=== PATIENT | female | born 1960 | race Hispanic/Latino ===

== ENCOUNTER 2023-09-18 01:00 | Inpatient (IN) | payer SELFPAY ==
[~2023-09-18] VITALS: Ht 152.4 cm; Wt 84.5 kg
[2023-09-18] VITALS (17 sets, daily range): BP systolic 76–116; BP diastolic 43–63; PULSE 76–87; RESP 8–25; O2SAT 94
[~2023-09-18 01:00] MED LIST: ASPI-1197 PO; AZIT500T4 PO; DULO60CA45 PO; GABA600T10 PO; GLYB5TAB8 PO; LISI10TA24 PO; TRAM50TA4 PO
[2023-09-18 01:25] LABS: BASOPHILS # (AUTO) 0.08 K/uL (0.00-0.20); BASOPHILS % (AUTO) 0.8 % (0.0-5.0); EOSINOPHILS # (AUTO) 0.16 K/uL (0.00-0.70); EOSINOPHILS % (AUTO) 1.7 % (0.0-8.0); HEMATOCRIT 30.7 % (36-48); IMMATURE GRANULOCYTE ABSOLUTE 0.06 K/uL (0-1); LYMPHOCYTES % (AUTO) 10.4 % (21.0-51.0); MEAN CORPUSCULAR HEMOGLOBIN 30.9 pg (27.0-33.0); MEAN CORPUSCULAR HGB CONC 35.2 g/dL (32.0-36.0); MONOCYTES # (AUTO) 0.7 K/uL (0.1-1.0); MONOCYTES % (AUTO) 7.2 % (3.0-13.0); NEUTROPHILS # (AUTO) 7.7 K/uL (1.8-7.7); NEUTROPHILS % (AUTO) 79.3 % (40.0-77.0); PLATELET COUNT (AUTO) 239 K/uL (130-400); RED BLOOD CELL COUNT(AUTO) 3.49 MIL/uL (4.00-5.50); RED CELL DISTRIBUTION WIDTH 12.7 % (11.0-15.5); WHITE BLOOD COUNT (AUTO) 9.7 K/uL (4.8-10.8)
[2023-09-18] MEDS: 0.9%NACL 1000ML 2,340 ML IV ONE (01:28)
[2023-09-18 01:47] LABS: ALBUMIN 3.6 g/dL (3.5-5.0); BILIRUBIN,TOTAL 0.4 mg/dL (0.2-1.0); CREATININE 4.5 mg/dL (0.5-1.0); POTASSIUM 4.6 mmol/L (3.5-5.1); TOTAL PROTEIN, SERUM 7.1 g/dL (6.0-8.3)
[2023-09-18 02:06] LABS: INR 1.02 (0.85-1.15)
[2023-09-18 02:08] LABS: PARTIAL THROMBOPLASTIN TIME 25.8 SEC (26.3-35.5)
[2023-09-18] MEDS: ASPIRIN 325MG TAB PO ONE (02:15)
[2023-09-18] MEDS: ATORVASTATIN 40 MG TABLET PO ONE (03:34)
[2023-09-18] MEDS: HEPARIN 25,000 UNITS/250ML D5W 250 ML IV SCH (03:34)
[2023-09-18] MEDS: HEPARIN 5,000 UNIT VIAL ONE (03:36)
[2023-09-18] MEDS ORDERED: ONDANSETRON 4MG INJ IV PRN (05:30)
[2023-09-18] MEDS ORDERED: DEXTROSE 50%-WATER 50 ML DISP.SYRIN IV PRN (05:30)
[2023-09-18] MEDS ORDERED: NITROGLYCERIN 0.4 MG SL TAB SL PRN (05:30)
[2023-09-18] MEDS ORDERED: GLUCAGON 1MG KIT 1 MG ML IM PRN (05:30)
[2023-09-18] MEDS: 0.9%NACL 1000ML 1,000 ML IV SCH (06:14)
[2023-09-18 06:44] LABS: CHLORIDE,URINE RANDOM 28 mmol/L (110-250); POTASSIUM,URINE RANDOM 46 mmol/L (25-125); SODIUM,URINE RANDOM 27 mmol/l (40-220)
[2023-09-18 07:08] LABS: BASOPHILS # (AUTO) 0.05 K/uL (0.00-0.20); BASOPHILS % (AUTO) 0.6 % (0.0-5.0); EOSINOPHILS # (AUTO) 0.06 K/uL (0.00-0.70); EOSINOPHILS % (AUTO) 0.7 % (0.0-8.0); HEMATOCRIT 28.2 % (36-48); IMMATURE GRANULOCYTE ABSOLUTE 0.08 K/uL (0-1); LYMPHOCYTES # (AUTO) 1.1 K/uL (1.0-4.8); LYMPHOCYTES % (AUTO) 13.3 % (21.0-51.0); MEAN CORPUSCULAR HGB CONC 34.8 g/dL (32.0-36.0); MEAN CORPUSCULAR VOLUME 89.2 fL (79-99); MONOCYTES # (AUTO) 0.4 K/uL (0.1-1.0); NEUTROPHILS # (AUTO) 6.6 K/uL (1.8-7.7); NEUTROPHILS % (AUTO) 79.4 % (40.0-77.0); PLATELET COUNT (AUTO) 209 K/uL (130-400); RED BLOOD CELL COUNT(AUTO) 3.16 MIL/uL (4.00-5.50); RED CELL DISTRIBUTION WIDTH 12.4 % (11.0-15.5); WHITE BLOOD COUNT (AUTO) 8.3 K/uL (4.8-10.8)
[2023-09-18 07:29] LABS: BILIRUBIN,TOTAL 0.3 mg/dL (0.2-1.0); CREATININE 4.1 mg/dL (0.5-1.0); MAGNESIUM 2.3 mg/dL (1.80-2.40); THYROID STIMULATING HORMONE 0.53 uIU/mL (0.36-3.74); TOTAL PROTEIN, SERUM 6.5 g/dL (6.0-8.3)
[2023-09-18 08:12] LABS: APPEARANCE,URINE CLEAR (CLEAR); BILIRUBIN,URINE NEGATIVE (NEGATIVE); COLOR,URINE YELLOW (YELLOW); GLUCOSE, URINE (UA) NEGATIVE (NEGATIVE); KETONES,URINE NEGATIVE (NEGATIVE); LEUKOCYTE ESTERASE ,URINE 250 Leu/uL (NEGATIVE); NITRATE,URINE NEGATIVE (NEGATIVE); OCCULT BLOOD,URINE NEGATIVE (NEGATIVE); PROTEIN,URINE 20 mg/dL (NEGATIVE); UROBILINOGEN,URINE 0.2 mg/dL (0.2-1.0)
[2023-09-18 08:14] LABS: ADD UA MICROSCOPIC YES
[2023-09-18 08:17] LABS: BACTERIA,URINE FEW /HPF (None Seen); MUCUS,URINE RARE LPF (None Seen); SQUAMOUS EPITHELIAL CELL,UR RARE /HPF (0-2)
[2023-09-18 08:18] LABS: HEMOGLOBIN A1C 7.8 % (4.0-6.0)
[2023-09-18 08:46] LABS: ERYTHROCYTE SEDIMENTATION RATE 40 MM/HR (0-30)
[2023-09-18] MEDS: ASPIRIN 81 MG EC TAB PO SCH (08:47)
[2023-09-18] MEDS: INSULIN HUMULIN R 100 UNIT/ML 3ML SQ SCH (08:49)
[2023-09-18] MEDS ORDERED: FOLI0.8T22 PO (09:03)
[2023-09-18] MEDS ORDERED: DULO60CA45 PO (09:03)
[2023-09-18] MEDS ORDERED: IBUP-2077 PO (09:03)
[2023-09-18] MEDS ORDERED: LISI20TA24 PO (09:03)
[2023-09-18] MEDS ORDERED: CLIN-141 PO (09:03)
[2023-09-18] MEDS ORDERED: ACET-2123 PO (09:03)
[2023-09-18] MEDS ORDERED: 0.9%NACL 1000ML 1,000 ML IV STA (12:59)
[2023-09-18] MEDS: 0.9%NACL 1000ML 1,000 ML IV STA (13:33)
[2023-09-18] MEDS: ZOSYN 3.375GM +NS 50ML IV ONE (16:34)
[2023-09-18] MEDS: ATORVASTATIN 40 MG TABLET PO SCH (20:31)
[2023-09-18] MEDS: acetaMINOPHEN 325 MG TAB PO PRN (22:24)
[2023-09-19] VITALS (52 sets, daily range): BP systolic 91–134; BP diastolic 50–76; PULSE 71–96; RESP 9–39; O2SAT 95–100
[2023-09-19 03:57] LABS: BASOPHILS # (AUTO) 0.06 K/uL (0.00-0.20); BASOPHILS % (AUTO) 0.8 % (0.0-5.0); EOSINOPHILS # (AUTO) 0.38 K/uL (0.00-0.70); EOSINOPHILS % (AUTO) 4.9 % (0.0-8.0); HEMATOCRIT 27.9 % (36-48); IMMATURE GRANULOCYTE ABSOLUTE 0.05 K/uL (0-1); LYMPHOCYTES # (AUTO) 1.4 K/uL (1.0-4.8); LYMPHOCYTES % (AUTO) 17.9 % (21.0-51.0); MEAN CORPUSCULAR HEMOGLOBIN 31.1 pg (27.0-33.0); MEAN CORPUSCULAR HGB CONC 34.1 g/dL (32.0-36.0); MEAN CORPUSCULAR VOLUME 91.5 fL (79-99); MONOCYTES # (AUTO) 0.7 K/uL (0.1-1.0); MONOCYTES % (AUTO) 9.2 % (3.0-13.0); NEUTROPHILS # (AUTO) 5.2 K/uL (1.8-7.7); NEUTROPHILS % (AUTO) 66.6 % (40.0-77.0); PLATELET COUNT (AUTO) 193 K/uL (130-400); RED BLOOD CELL COUNT(AUTO) 3.05 MIL/uL (4.00-5.50); RED CELL DISTRIBUTION WIDTH 12.5 % (11.0-15.5); WHITE BLOOD COUNT (AUTO) 7.8 K/uL (4.8-10.8)
[2023-09-19 04:18] LABS: CREATININE 2.6 mg/dL (0.5-1.0); PHOSPHORUS 6.5 mg/dL (2.5-4.9); POTASSIUM 3.6 mmol/L (3.5-5.1)
[2023-09-19] MEDS: FAMOTIDINE 20MG TAB PO SCH (05:31)
[2023-09-19 06:04] LABS: % IRON SATURATION 44.6 % (22-44)
[2023-09-19] MEDS: CEFTRIAXONE 2GM VIAL IVPB SCH (08:28)
[2023-09-19] MEDS: ISOSORBIDE MONO 30MG SR TAB PO SCH (11:12)
[2023-09-19] MEDS: 0.9%NACL 1000ML 1,000 ML IV ONE (13:17)
[2023-09-19] MEDS: DULOXETINE HCL 30 MG CAP PO SCH (20:04)
[2023-09-20] VITALS (9 sets, daily range): BP systolic 114–139; BP diastolic 68–79; PULSE 81–99; RESP 18–20; O2SAT 95–100
[2023-09-20] MEDS: acetaMINOPHEN 325 MG TAB PO PRN (01:45)
[2023-09-20 03:29] LABS: HEMATOCRIT 28.3 % (36-48); MEAN CORPUSCULAR HEMOGLOBIN 30.8 pg (27.0-33.0); MEAN CORPUSCULAR HGB CONC 33.9 g/dL (32.0-36.0); MEAN CORPUSCULAR VOLUME 90.7 fL (79-99); RED BLOOD CELL COUNT(AUTO) 3.12 MIL/uL (4.00-5.50); RED CELL DISTRIBUTION WIDTH 12.9 % (11.0-15.5); WHITE BLOOD COUNT (AUTO) 9.3 K/uL (4.8-10.8)
[2023-09-20 03:59] LABS: ALBUMIN 2.7 g/dL (3.5-5.0); BILIRUBIN,TOTAL 0.2 mg/dL (0.2-1.0); CREATININE 1.5 mg/dL (0.5-1.0); MAGNESIUM 2.1 mg/dL (1.80-2.40); PHOSPHORUS 4.6 mg/dL (2.5-4.9); POTASSIUM 3.8 mmol/L (3.5-5.1); THYROID STIMULATING HORMONE 1.24 uIU/mL (0.36-3.74); TOTAL PROTEIN, SERUM 6.3 g/dL (6.0-8.3); URIC ACID 8.7 mg/dL (2.6-7.2)
[2023-09-20] MEDS: Vitamin B Complex/Vit C/Folic Acid PO ONE (12:14)
[2023-09-21] VITALS (7 sets, daily range): BP systolic 121–137; BP diastolic 68–83; PULSE 95–109; RESP 14–22; O2SAT 97–100
[2023-09-21] MEDS: HEPARIN 5,000 UNIT VIAL IV PRN ×2 (02:23→16:19)
[2023-09-21 04:23] LABS: HEMATOCRIT 29.5 % (36-48); MEAN CORPUSCULAR HGB CONC 33.9 g/dL (32.0-36.0); MEAN CORPUSCULAR VOLUME 91.3 fL (79-99); RED BLOOD CELL COUNT(AUTO) 3.23 MIL/uL (4.00-5.50); WHITE BLOOD COUNT (AUTO) 8.9 K/uL (4.8-10.8)
[2023-09-21 04:44] LABS: ALBUMIN 2.9 g/dL (3.5-5.0); BILIRUBIN,TOTAL 0.4 mg/dL (0.2-1.0); CREATININE 1.2 mg/dL (0.5-1.0); MAGNESIUM 1.8 mg/dL (1.80-2.40); PHOSPHORUS 3.4 mg/dL (2.5-4.9); POTASSIUM 3.8 mmol/L (3.5-5.1); TOTAL PROTEIN, SERUM 6.5 g/dL (6.0-8.3)
[2023-09-21] MEDS: Vitamin B Complex/Vit C/Folic Acid PO SCH (10:40)
[2023-09-21] MEDS ORDERED: DULO30CA2 PO (11:24)
[2023-09-21] MEDS ORDERED: Isosorbide Mono 30MG Sr Tab PO (11:24)
[2023-09-21] MEDS ORDERED: ATOR40TA69 PO (11:24)
[2023-09-21] MEDS ORDERED: FAMO20TA8 PO (11:24)
[2023-09-21] MEDS: REGADENOSON 0.4 MG/5 ML PF SYG IVP SCH (13:23)
[2023-09-21] MEDS: MAGNESIUM 2GM PREMIX 50ML 50 ML IV PRN (13:53)
[2023-09-21] MEDS: ENOXAPARIN SODIUM 40 MG/0.4 ML SYRINGE SQ SCH (22:20)
[2023-09-22] VITALS (10 sets, daily range): BP systolic 118–138; BP diastolic 70–86; PULSE 89–109; RESP 14–20; TEMP 99; O2SAT 96–98
[2023-09-22 04:07] LABS: BASOPHILS # (AUTO) 0.05 K/uL (0.00-0.20); BASOPHILS % (AUTO) 0.6 % (0.0-5.0); EOSINOPHILS # (AUTO) 0.22 K/uL (0.00-0.70); EOSINOPHILS % (AUTO) 2.8 % (0.0-8.0); HEMATOCRIT 26.9 % (36-48); LYMPHOCYTES # (AUTO) 1.4 K/uL (1.0-4.8); LYMPHOCYTES % (AUTO) 16.9 % (21.0-51.0); MEAN CORPUSCULAR HEMOGLOBIN 31.2 pg (27.0-33.0); MEAN CORPUSCULAR HGB CONC 34.6 g/dL (32.0-36.0); MEAN CORPUSCULAR VOLUME 90.3 fL (79-99); MONOCYTES # (AUTO) 0.6 K/uL (0.1-1.0); MONOCYTES % (AUTO) 7.9 % (3.0-13.0); NEUTROPHILS # (AUTO) 5.6 K/uL (1.8-7.7); NEUTROPHILS % (AUTO) 70.5 % (40.0-77.0); PLATELET COUNT (AUTO) 250 K/uL (130-400); RED BLOOD CELL COUNT(AUTO) 2.98 MIL/uL (4.00-5.50); RED CELL DISTRIBUTION WIDTH 13.2 % (11.0-15.5)
[2023-09-22 04:21] LABS: ALBUMIN 2.8 g/dL (3.5-5.0); BILIRUBIN,TOTAL 0.4 mg/dL (0.2-1.0); CREATININE 1.2 mg/dL (0.5-1.0); MAGNESIUM 2.2 mg/dL (1.80-2.40); POTASSIUM 3.7 mmol/L (3.5-5.1); TOTAL PROTEIN, SERUM 6.5 g/dL (6.0-8.3)
[2023-09-22] MEDS ORDERED: LEVO750T39 PO (11:06)
[2023-09-22] MEDS ORDERED: ENOXAPARIN SODIUM 40 MG/0.4 ML SYRINGE SQ SCH (21:00)
== END 2023-09-22 14:00 | disposition home or self-care (01) | DRG 871 ==
LOC: EDH 01:00 → EDHIP 01:01 → 2BH 13:14 → 2DH 09-19 20:30
PROVIDERS: ADMIT Internal Medicine; ATTEND Internal Medicine
PROC: 4A02XM4 Measurement of Cardiac Total Activity, External Approach (ICD-10-PCS; principal; 2023-09-21)
PROC: 3E073KZ Introduction of Other Diagnostic Substance into Coronary Artery, Percutaneous Approach (ICD-10-PCS; 2023-09-21)
DX: A41.9 Sepsis, unspecified organism (principal); I21.4 Non-ST elevation (NSTEMI) myocardial infarction; N17.0 Acute kidney failure with tubular necrosis; E87.1 Hypo-osmolality and hyponatremia; N30.00 Acute cystitis without hematuria; I25.10 Atherosclerotic heart disease of native coronary artery without angina pectoris; I48.91 Unspecified atrial fibrillation; E11.42 Type 2 diabetes mellitus with diabetic polyneuropathy; E11.65 Type 2 diabetes mellitus with hyperglycemia; N18.9 Chronic kidney disease, unspecified; I12.9 Hypertensive chronic kidney disease with stage 1 through stage 4 chronic kidney disease, or unspecified chronic kidney disease; K04.7 Periapical abscess without sinus; D64.9 Anemia, unspecified; I95.9 Hypotension, unspecified; F32.A Depression, unspecified; E11.22 Type 2 diabetes mellitus with diabetic chronic kidney disease; E66.9 Obesity, unspecified; E78.5 Hyperlipidemia, unspecified; I08.0 Rheumatic disorders of both mitral and aortic valves; I45.4 Nonspecific intraventricular block; Z68.33 Body mass index [BMI] 33.0-33.9, adult; Z79.82 Long term (current) use of aspirin; Z88.8 Allergy status to other drugs, medicaments and biological substances; Z79.899 Other long term (current) drug therapy; Z82.49 Family history of ischemic heart disease and other diseases of the circulatory system; Z83.3 Family history of diabetes mellitus; Z87.891 Personal history of nicotine dependence
CPT/HCPCS: 36415; 71045; 76770; 78452; 80048; 80051; 80053; 80061; 81001; 82550; 82570; 82728; 82948; 83036; 83540; 83550; 83605; 83735; 83930; 84100; 84443; 84484; 84550; 85025; 85027; 85610; 85651; 85730; 87040; 87086; 87186; 93005; 93017; 93306; 93356; 94760; 96374; A9500; G0378; J0696; J1644; J1650; J1815; J2543; J2785; J3475; G8980-CJ; G8983-CI

== ENCOUNTER 2023-10-09 15:41 | Inpatient (IN) | payer SELFPAY ==
[~2023-10-09] VITALS: Ht 160 cm; Wt 74.8 kg
[~2023-10-09 15:41] MED LIST changes: +ACET-2123 PO; +ATOR40TA69 PO; -AZIT500T4 PO; +CLIN-141 PO; +DULO30CA2 PO; +FAMO20TA8 PO; +FOLI0.8T22 PO; +GABA-1405 PO; -GABA600T10 PO; -GLYB5TAB8 PO; +Isosorbide Mono 30MG Sr Tab PO; +LEVO750T39 PO; -LISI10TA24 PO; -TRAM50TA4 PO
[2023-10-09] MEDS: acetaMINOPHEN 325 MG TAB PO ONE (16:32)
[2023-10-09] MEDS: LACTATED RINGERS 1000ML 1,000 ML IV ONE (16:32)
[2023-10-09 16:45] LABS: BASOPHILS # (AUTO) 0.08 K/uL (0.00-0.20); EOSINOPHILS # (AUTO) 0.13 K/uL (0.00-0.70); EOSINOPHILS % (AUTO) 1.6 % (0.0-8.0); HEMATOCRIT 31.5 % (36-48); IMMATURE GRANULOCYTE ABSOLUTE 0.06 K/uL (0-1); LYMPHOCYTES # (AUTO) 0.7 K/uL (1.0-4.8); LYMPHOCYTES % (AUTO) 8.4 % (21.0-51.0); MEAN CORPUSCULAR HEMOGLOBIN 31.4 pg (27.0-33.0); MEAN CORPUSCULAR HGB CONC 35.2 g/dL (32.0-36.0); MEAN CORPUSCULAR VOLUME 89.2 fL (79-99); MONOCYTES # (AUTO) 0.5 K/uL (0.1-1.0); MONOCYTES % (AUTO) 6.4 % (3.0-13.0); NEUTROPHILS # (AUTO) 6.5 K/uL (1.8-7.7); NEUTROPHILS % (AUTO) 81.8 % (40.0-77.0); PLATELET COUNT (AUTO) 156 K/uL (130-400); RED BLOOD CELL COUNT(AUTO) 3.53 MIL/uL (4.00-5.50); RED CELL DISTRIBUTION WIDTH 12.4 % (11.0-15.5)
[2023-10-09 17:00] LABS: ALBUMIN 3.5 g/dL (3.5-5.0); BILIRUBIN,DIRECT 0.1 mg/dL (0.0-0.3); BILIRUBIN,TOTAL 0.7 mg/dL (0.2-1.0); CREATININE 1.9 mg/dL (0.5-1.0); TOTAL PROTEIN, SERUM 6.8 g/dL (6.0-8.3)
[2023-10-09] MEDS: 0.9%NACL 1000ML 1,000 ML IV ONE (17:04)
[2023-10-09] MEDS ORDERED: acetaMINOPHEN 650 MG SUPPOSITORY RC PRN (18:30)
[2023-10-09] MEDS ORDERED: hydrALAZine 20MG/ML VIAL IV PRN (18:30)
[2023-10-09] MEDS ORDERED: LACTULOSE 20 GM/30 ML UDCUP PO PRN (18:30)
[2023-10-09] MEDS ORDERED: doCUSate SODIUM 100 MG CAP PO PRN (18:30)
[2023-10-09] MEDS ORDERED: acetaMINOPHEN 325 MG TAB PO PRN (18:30)
[2023-10-09] MEDS ORDERED: TEMAZepam 15 MG CAPSULE PO PRN (18:30)
[2023-10-09] MEDS: atorVAStatin 40 MG TABLET PO SCH (19:56)
[2023-10-09] MEDS: PANTOPrazole 40 MG/VIAL IVP SCH (19:56)
[2023-10-09] MEDS: ASPIRIN 81MG CHEW TAB PO ONE (19:56)
[2023-10-09] MEDS: 0.9%NACL 1000ML 1,000 ML IV SCH (19:57)
[2023-10-09 19:58] LABS: ABG BASE EXCESS 0.3 mmol/L (-2.0-3.0); ABG HCO3 23.2 mmol/L (21.0-28.0); ABG OXYGEN SATURATION 97.6 % (94.0-98.0); ABG PCO2 31 mmHg (32-45); ABG PH 7.486 (7.350-7.450); CARBON MONOXIDE 0.3 % (0.5-1.5); DEVICE COMMENT LB RN LEAH; HHb 2.4; PO2, ARTERIAL BG 108.5 mmHg (83.0-108.0); VENT MODE, BG ROOMAIR (ROOM AIR)
[2023-10-09] MEDS: INSULIN humuLIN R 100 UNIT/ML 3ML SQ SCH (20:28)
[2023-10-09 20:35] LABS: ADD UA MICROSCOPIC YES; APPEARANCE,URINE CLEAR (CLEAR); BILIRUBIN,URINE NEGATIVE (NEGATIVE); COLOR,URINE LIGHT-YELLOW (YELLOW); GLUCOSE, URINE (UA) 500 mg/dL (NEGATIVE); KETONES,URINE NEGATIVE (NEGATIVE); LEUKOCYTE ESTERASE ,URINE 75 Leu/uL (NEGATIVE); NITRATE,URINE NEGATIVE (NEGATIVE); OCCULT BLOOD,URINE NEGATIVE (NEGATIVE); PH,URINE 5.5 (5.0-8.0); PROTEIN,URINE 30 mg/dL (NEGATIVE); UROBILINOGEN,URINE 0.2 mg/dL (0.2-1.0)
[2023-10-09 20:38] LABS: MUCUS,URINE RARE LPF (None Seen); SQUAMOUS EPITHELIAL CELL,UR FEW /HPF (0-2)
[2023-10-09 20:44] LABS: SARS-CoV-2, RNA, NAAT NEGATIVE SARS CoV-2 (NEGATIVE)
[2023-10-09 20:47] LABS: INFLUENZA TYPE A Negative For Type A (NEGATIVE); INFLUENZA TYPE B Negative For Type B (NEGATIVE)
[2023-10-09] MEDS ORDERED: FOLI0.8T22 PO (21:44)
[2023-10-09] MEDS ORDERED: DULO60CA45 PO (21:44)
[2023-10-09] MEDS: CEFTRIAXONE 2GM VIAL IVPB SCH (22:09)
[2023-10-09 22:40] VITALS: BP 129/60; PULSE 83; RESP 22; TEMP 98.3
[2023-10-10 03:37] VITALS: BP 130/72; PULSE 84; RESP 18; TEMP 98
[2023-10-10 05:45] LABS: BASOPHILS # (AUTO) 0.05 K/uL (0.00-0.20); BASOPHILS % (AUTO) 0.6 % (0.0-5.0); EOSINOPHILS # (AUTO) 0.24 K/uL (0.00-0.70); EOSINOPHILS % (AUTO) 2.9 % (0.0-8.0); HEMATOCRIT 28.9 % (36-48); IMMATURE GRANULOCYTE ABSOLUTE 0.05 K/uL (0-1); LYMPHOCYTES # (AUTO) 1.3 K/uL (1.0-4.8); LYMPHOCYTES % (AUTO) 16.1 % (21.0-51.0); MEAN CORPUSCULAR HGB CONC 34.9 g/dL (32.0-36.0); MEAN CORPUSCULAR VOLUME 88.7 fL (79-99); MONOCYTES # (AUTO) 0.9 K/uL (0.1-1.0); MONOCYTES % (AUTO) 10.3 % (3.0-13.0); NEUTROPHILS # (AUTO) 5.7 K/uL (1.8-7.7); NEUTROPHILS % (AUTO) 69.5 % (40.0-77.0); PLATELET COUNT (AUTO) 150 K/uL (130-400); RED BLOOD CELL COUNT(AUTO) 3.26 MIL/uL (4.00-5.50); RED CELL DISTRIBUTION WIDTH 12.6 % (11.0-15.5); WHITE BLOOD COUNT (AUTO) 8.2 K/uL (4.8-10.8)
[2023-10-10 06:35] LABS: CREATININE 1.6 mg/dL (0.5-1.0); MAGNESIUM 1.9 mg/dL (1.80-2.40); PHOSPHORUS 3.3 mg/dL (2.5-4.9); THYROID STIMULATING HORMONE 0.57 uIU/mL (0.36-3.74)
[2023-10-10 07:02] LABS: POTASSIUM 2.7 mmol/L (3.5-5.1)
[2023-10-10 08:00] VITALS: BP 101/57; PULSE 76; RESP 18; TEMP 98.8
[2023-10-10] MEDS ORDERED: PoTASSium chloRIDE 10MEQ/100ML 100 ML IV PRN (08:30)
[2023-10-10] MEDS: ASPIRIN 81MG CHEW TAB PO SCH (08:44)
[2023-10-10] MEDS: ENOXAPARIN SODIUM 30 MG/0.3 ML SQ SCH (08:45)
[2023-10-10] MEDS: PoTASSium chl 10% ELIXIR 20MEQ 20 MEQ/15 ML UDCUP PO PRN (08:46)
[2023-10-10 12:00] VITALS: BP 102/56; PULSE 80; RESP 18; TEMP 98.3
[2023-10-10] MEDS: PoTASSium chloRIDE 10MEQ SR 10 MEQ/TAB TAB.SR.24H PO PRN (12:35)
[2023-10-10 16:00] VITALS: BP 110/59; PULSE 74; RESP 18; TEMP 98.1
[2023-10-10 20:00] VITALS: BP 91/50; PULSE 65; RESP 18; TEMP 98.4; O2SAT 100
[2023-10-11] VITALS (9 sets, daily range): BP systolic 103–127; BP diastolic 54–91; PULSE 75–116; RESP 17–19; TEMP 97.6–98.8; O2SAT 100
[2023-10-11 04:45] LABS: BASOPHILS # (AUTO) 0.06 K/uL (0.00-0.20); BASOPHILS % (AUTO) 0.8 % (0.0-5.0); EOSINOPHILS # (AUTO) 0.15 K/uL (0.00-0.70); HEMATOCRIT 30.7 % (36-48); IMMATURE GRANULOCYTE ABSOLUTE 0.06 K/uL (0-1); LYMPHOCYTES % (AUTO) 13.9 % (21.0-51.0); MEAN CORPUSCULAR HEMOGLOBIN 30.9 pg (27.0-33.0); MEAN CORPUSCULAR HGB CONC 33.6 g/dL (32.0-36.0); MEAN CORPUSCULAR VOLUME 92.2 fL (79-99); MONOCYTES # (AUTO) 0.6 K/uL (0.1-1.0); NEUTROPHILS # (AUTO) 5.6 K/uL (1.8-7.7); NEUTROPHILS % (AUTO) 74.5 % (40.0-77.0); PLATELET COUNT (AUTO) 164 K/uL (130-400); RED BLOOD CELL COUNT(AUTO) 3.33 MIL/uL (4.00-5.50); WHITE BLOOD COUNT (AUTO) 7.5 K/uL (4.8-10.8)
[2023-10-11 04:59] LABS: CREATININE 1.4 mg/dL (0.5-1.0); PHOSPHORUS 3.4 mg/dL (2.5-4.9); POTASSIUM 3.6 mmol/L (3.5-5.1)
[2023-10-11 05:03] LABS: % IRON SATURATION 22.9 % (22-44)
[2023-10-11] MEDS: ondanSETRON 4MG INJ IVP PRN (07:52)
[2023-10-11] MEDS: duloXETine HCL 30 MG CAP PO SCH (07:52)
[2023-10-11 16:53] LABS: HEMOGLOBIN A1C 8.1 % (4.0-6.0)
[2023-10-11 17:31] LABS: CHOLESTEROL 102 mg/dL (<200); HDL CHOLESTEROL 45 mg/dL (35-85); LDL DIRECT 40 mg/dL (0-99); TRIGLYCERIDES 70 mg/dL (30-200)
[2023-10-11] MEDS ORDERED: mecliZINE HCL 25 MG TABLET PO PRN (19:00)
[2023-10-11] MEDS: NYSTatin 15 GM POWDER TP SCH (20:53)
[2023-10-11] MEDS: ZINC OXIDE OINT 30GM TUBE TP SCH (20:54)
[2023-10-11] MEDS ORDERED: HydroCORTISONE 1% CREAM 28G TP SCH (21:00)
[2023-10-11] MEDS: HydroCORTISONE 1% CREAM 28G TP SCH (22:14)
[2023-10-12] VITALS: BP 107/51; PULSE 76; RESP 18; TEMP 97.9
[2023-10-12 00:59] LABS: APPEARANCE,URINE TURBID (CLEAR); BILIRUBIN,URINE NEGATIVE (NEGATIVE); COLOR,URINE YELLOW (YELLOW); GLUCOSE, URINE (UA) NEGATIVE (NEGATIVE); KETONES,URINE NEGATIVE (NEGATIVE); LEUKOCYTE ESTERASE ,URINE 500 Leu/uL (NEGATIVE); NITRATE,URINE NEGATIVE (NEGATIVE); PROTEIN,URINE 70 mg/dL (NEGATIVE); UROBILINOGEN,URINE 0.2 mg/dL (0.2-1.0)
[2023-10-12 01:01] LABS: ADD UA MICROSCOPIC YES
[2023-10-12 01:10] LABS: RBC,URINE TNTC /HPF (0-1); SQUAMOUS EPITHELIAL CELL,UR MOD /HPF (0-2); WBC CLUMP FEW /HPF (0-1); WBC,URINE >100 /HPF (0-1); YEAST,URINE BUDDING MANY /HPF (None Seen); YEAST,URINE HYPHAE MANY /HPF (None Seen)
[2023-10-12] MEDS ORDERED: GLUCAGON 1MG KIT 1 MG ML IM PRN (02:00)
[2023-10-12] MEDS: DEXTROSE 50%-WATER 50 ML DISP.SYRIN IV PRN (02:04)
[2023-10-12] MEDS: DEXTROSE 50%-WATER 50 ML DISP.SYRIN IV ONE (02:17)
[2023-10-12 04:00] VITALS: BP 115/64; PULSE 77; RESP 18; TEMP 98.2
[2023-10-12 05:01] LABS: MEAN CORPUSCULAR HEMOGLOBIN 30.6 pg (27.0-33.0); MEAN CORPUSCULAR HGB CONC 33.6 g/dL (32.0-36.0); MEAN CORPUSCULAR VOLUME 91.2 fL (79-99); RED BLOOD CELL COUNT(AUTO) 3.07 MIL/uL (4.00-5.50); RED CELL DISTRIBUTION WIDTH 13.2 % (11.0-15.5); WHITE BLOOD COUNT (AUTO) 9.8 K/uL (4.8-10.8)
[2023-10-12 05:29] LABS: CREATININE 1.4 mg/dL (0.5-1.0); PHOSPHORUS 3.2 mg/dL (2.5-4.9); POTASSIUM 3.5 mmol/L (3.5-5.1)
[2023-10-12 08:00] VITALS: BP 113/61; PULSE 85; RESP 17; TEMP 99; O2SAT 98
[2023-10-12 12:00] VITALS: BP 114/66; PULSE 84; RESP 18; TEMP 98.7
[2023-10-12 16:00] VITALS: BP 119/69; PULSE 89; RESP 18
[2023-10-12 20:00] VITALS: BP 115/63; PULSE 78; RESP 19; TEMP 98.7; O2SAT 98
[2023-10-13] VITALS: BP 104/54; PULSE 75; RESP 19; TEMP 98.8
[2023-10-13 04:00] VITALS: BP 102/54; PULSE 78; RESP 19; TEMP 99.1
[2023-10-13 04:26] LABS: HEMATOCRIT 28.4 % (36-48); MEAN CORPUSCULAR HEMOGLOBIN 30.3 pg (27.0-33.0); MEAN CORPUSCULAR HGB CONC 33.1 g/dL (32.0-36.0); MEAN CORPUSCULAR VOLUME 91.6 fL (79-99); RED BLOOD CELL COUNT(AUTO) 3.1 MIL/uL (4.00-5.50); RED CELL DISTRIBUTION WIDTH 13.1 % (11.0-15.5); WHITE BLOOD COUNT (AUTO) 10.2 K/uL (4.8-10.8)
[2023-10-13 04:38] LABS: CREATININE 1.3 mg/dL (0.5-1.0); PHOSPHORUS 3.3 mg/dL (2.5-4.9); POTASSIUM 3.6 mmol/L (3.5-5.1)
[2023-10-13 08:00] VITALS: BP 105/60; PULSE 90; RESP 17; TEMP 99.1; O2SAT 98
[2023-10-13 12:00] VITALS: BP 117/73; PULSE 82; RESP 17; TEMP 98.6
[2023-10-13] MEDS ORDERED: MECL-302 PO (12:54)
[2023-10-26] MEDS ORDERED: VANCO125PO PO (15:04)
== END 2023-10-13 18:06 | disposition home or self-care (01) | DRG 149 ==
LOC: EDH 15:41 → EDHIP 18:24 → 4CH 22:29
PROVIDERS: ADMIT Internal Medicine; ATTEND Internal Medicine
DX: H81.13 Benign paroxysmal vertigo, bilateral (principal); I21.A1 Myocardial infarction type 2; E87.1 Hypo-osmolality and hyponatremia; N17.9 Acute kidney failure, unspecified; N30.00 Acute cystitis without hematuria; Z20.822 Contact with and (suspected) exposure to COVID-19; R62.7 Adult failure to thrive; R33.9 Retention of urine, unspecified; I12.9 Hypertensive chronic kidney disease with stage 1 through stage 4 chronic kidney disease, or unspecified chronic kidney disease; E11.22 Type 2 diabetes mellitus with diabetic chronic kidney disease; N18.9 Chronic kidney disease, unspecified; D64.9 Anemia, unspecified; E11.40 Type 2 diabetes mellitus with diabetic neuropathy, unspecified; E87.6 Hypokalemia; E11.65 Type 2 diabetes mellitus with hyperglycemia; E66.9 Obesity, unspecified; E78.5 Hyperlipidemia, unspecified; F32.A Depression, unspecified; I25.10 Atherosclerotic heart disease of native coronary artery without angina pectoris; I48.91 Unspecified atrial fibrillation; L98.429 Non-pressure chronic ulcer of back with unspecified severity; Z79.899 Other long term (current) drug therapy; Z79.82 Long term (current) use of aspirin; Z88.5 Allergy status to narcotic agent; Z82.49 Family history of ischemic heart disease and other diseases of the circulatory system; Z83.3 Family history of diabetes mellitus; Z87.891 Personal history of nicotine dependence; Z68.29 Body mass index [BMI] 29.0-29.9, adult
CPT/HCPCS: 36415; 36600; 71045; 80048; 80061; 80076; 81001; 82140; 82306; 82435; 82550; 82607; 82728; 82803; 82947; 82948; 83036; 83540; 83550; 83605; 83735; 83880; 84100; 84132; 84295; 84443; 84484; 85018; 85025; 85027; 87086; 87635; 87804; 93005; 96360; 96361; G0378; J0696; J1650; J1815; J2405; J2470; J7030; J7070

== ENCOUNTER 2024-09-03 05:38 | Emergency (ER) | payer SELFPAY ==
[~2024-09-03] VITALS: Ht 160 cm; Wt 53.5 kg
[~2024-09-03 05:38] MED LIST changes: -ACET-2123 PO; -ASPI-1197 PO; -CLIN-141 PO; -DULO30CA2 PO; -FAMO20TA8 PO; -Isosorbide Mono 30MG Sr Tab PO; -LEVO750T39 PO; +MECL-302 PO
[2024-09-03 05:44] VITALS: BP_DIAS 61
--- NOTE | 2024-09-03 06:23 | ERN ---
General Chief Complaint: Multiple Complaints Stated Complaint: DIZZINESS Time Seen by MD: 05:58 Source: patient, family History of Present Illness Initial Comments 64-year-old female brought in by family because they saw her tremoring and being unresponsive for a brief period. Patient herself does not remember the incident and does not know why she is here. She has been admitted to this hospital a few times for hyponatremia and failure to thrive. Allergies: Coded Allergies: codeine (Unverified Allergy, Intermediate, RASH, 01/20/14) Home Meds Active Scripts Meclizine HCl (Meclizine HCl) 25 Mg Tablet, 25 MG PO TID PRN for DIZZINESS, #30 TAB 0 Refills Prov:NATO SARAVIA MD 10/13/23 Atorvastatin Calcium (LIPITOR) 40 Mg Tablet, 40 MG PO HS, #60 TAB Prov:JAKE RILEY [employer]ANCE TEST PROGRAM MANAGER 09/21/23 Reported Medications Duloxetine HCl (Cymbalta) 60 Mg Capsule.dr, 60 MG PO DAILY, CAP 10/22/23 Folic Acid/Vitamin B Comp W-C ([place]-Omi Tablet) 0.8 Mg Tablet, 0.8 MG PO DAILY, TAB 10/22/23 Gabapentin (Gabapentin) 600 Mg Tablet, 600 MG PO TID, TAB 01/10/15 Past Medical History Past Medical History: Diabetes-Type II, Seizure Medical History Other: PT NOT A GOOD HISTORIAN Past Surgical History: Cholecystectomy Surgical History Other: R HIP REPLACEMENT, L LEG REPAIR, CATARACT SURGERY Constitutional: (-) chills, (-) diaphoresis, (-) fever, (-) malaise, (-) weakness, (-) other documentation EENTM: (-) eye pain, (-) blurred vision, (-) tearing, (-) double vision, (-) ear pain, (-) ear discharge, (-) nose pain, (-) nose congestion, (-) throat pain, (-) Throat swelling, (-) mouth pain, (-) tooth pain, (-) mouth swelling, (-) other documentation Respiratory: (-) cough, (-) orthopnea, (-) short of breath, (-) stridor, (-) wheezing, (-) other documentation Cardiovascular: (-) chest pain, (-) edema, (-) palpitations, (-) syncope, (-) dyspnea on exertion, (-) other documentation Gastrointestinal/Abdominal: (-) nausea, (-) vomiting, (-) diarrhea, (-) abdominal pain, (-) abdominal distention, (-) constipation, (-) rectal bleeding, (-) dark stool/melena, (-) other documentation Genitourinary: (-) vaginal discharge, (-) vaginal bleeding, (-) dysuria, (-) frequency, (-) hematuria, (-) pain, (-) other documentation Musculoskeletal: (-) Neck pain, (-) back pain, (-) Flank Pain, (-) joint pain, (-) joint swelling, (-) muscle pain, (-) muscle stiffness, (-) gout, (-) other documentation Physical Exam General Appearance: (+) no apparent distress Orientation: (+) alert Head/Face Trauma: No Eye: bilateral eye normal inspection, bilateral eye PERRL, bilateral eye EOMI Ear, Nose, Throat: (+) hearing grossly normal, (+) normal ENT inspection, (+) moist mucous membraine Neck: (+) supple, (+) full range of motion Respiratory: (+) chest non-tender, (+) lungs clear, (+) well ventilated Heart: (+) regular, (+) systolic murmur Heart Comment Loud systolic murmur Gastrointestinal: (+) soft, (+) non-tender, (+) no organomegaly, (+) bowel sound present Gastrointestinal Comment Heart murmur heard in abdomen. Not sure if it represents renal stenosis aortic stenosis or a transmitted murmur from heart tones. Results Laboratory and Microbiology Lab and Micro Result Laboratory Tests Test 09/03/24 07:20 09/03/24 08:12 09/03/24 09:15 White Blood Count 8.8 K/uL (4.8-10.8) Red Blood Count 3.92 MIL/uL (4.00-5.50) L Hemoglobin 11.7 g/dL (12.0-16.0) L Hematocrit 34.6 % (36-48) L Mean Corpuscular Volume 88.3 fL (79-99) Mean Corpuscular Hemoglobin 29.8 pg (27.0-33.0) Mean Corpuscular Hemoglobin Concent 33.8 g/dL (32.0-36.0) Red Cell Distribution Width 13.7 % (11.0-15.5) Platelet Count 148 K/uL (130-400) Mean Platelet Volume 12.0 fL (7.5-10.5) H Immature Granulocyte % (Auto) 0.3 % (0-1) Neutrophils (%) (Auto) 77.6 % (40.0-77.0) H Lymphocytes (%) (Auto) 11.4 % (21.0-51.0) L Monocytes (%) (Auto) 9.3 % (3.0-13.0) Eosinophils (%) (Auto) 0.8 % (0.0-8.0) Basophils (%) (Auto) 0.6 % (0.0-5.0) Neutrophils # (Auto) 6.8 K/uL (1.8-7.7) Lymphocytes # (Auto) 1.0 K/uL (1.0-4.8) Monocytes # (Auto) 0.8 K/uL (0.1-1.0) Eosinophils # (Auto) 0.07 K/uL (0.00-0.70) Basophils # (Auto) 0.05 K/uL (0.00-0.20) Absolute Immature Granulocyte (auto 0.03 K/uL (0-1) Nucleated Red Blood Cells 0.0 % (0.0-0.19) Sodium Level 136 mmol/L (136-145) Potassium Level 3.7 mmol/L (3.5-5.1) Chloride Level 101 mmol/L (101-111) Carbon Dioxide Level 25 mmol/L (21-32) Blood Urea Nitrogen 19 mg/dL (7-18) H Creatinine 1.4 mg/dL (0.5-1.0) H Glomerular Filtration Rate Calc 42 mL/min (>90) Random Glucose 196 mg/dL (70-105) H Total Calcium 9.2 mg/dL (8.5-10.1) Total Bilirubin 0.8 mg/dL (0.2-1.0) Aspartate Amino Transf (AST/SGOT) 30 U/L (10-37) Alanine Aminotransferase (ALT/SGPT) 15 U/L (12-78) Alkaline Phosphatase 111 U/L (50-136) Total Protein 6.6 g/dL (6.0-8.3) Albumin 3.2 g/dL (3.5-5.0) L Urine Color LIGHT-YELLOW (YELLOW) Urine Appearance CLEAR (CLEAR) Urine pH 6.0 (5.0-8.0) Urine Specific [place] 1.018 (1.001-1.031) Urine Protein 300 mg/dL (NEGATIVE) H Urine Glucose (UA) 300 mg/dL (NEGATIVE) H Urine Ketones 20 mg/dL (NEGATIVE) H Urine Occult Blood SMALL (NEGATIVE) H Urine Nitrate NEGATIVE (NEGATIVE) Urine Bilirubin NEGATIVE mg/dL (NEGATIVE) Urine Urobilinogen 0.2 mg/dL (0.2-1.0) Urine Leukocyte Esterase NEGATIVE [place]/uL Urine RBC 0-1 /HPF (0-1) Urine WBC 6-10 /HPF (0-1) H Urine Squamous Epithelial Cells RARE /HPF (0-2) Urine Bacteria None /HPF (None Seen) SARS-CoV-2, RNA, NAAT NEGATIVE SARS CoV-2 MDM MDM: Differential diagnosis: Patient may have had a seizure. I will get a head CT scan I will also get electrolyte panels. Load the patient with a g of [place]. Rationale: Tests considered and ordered secondary to shared decision making include: Previous outside records reviewed: Old ER visits. Risk of complication and/or morbidity or mortality of patient management: None Medications-Per medication reconciliation Need for hospitalization: Patient does meet criteria for hospitalization. Patient is a 64-year-old female coming in with multiple complaints. Patient is a has a history of anxiety states that he has not been taking her medication for seizure might have had a seizure earlier today. Patient received IV fluids and Keppra I did advised her appropriate follow up with PCP in 1-2 days. Patient will be discharged stable condition with a diagnosis of history of seizures and possible seizure. ED Course Orders Procedure Category Date Status Time Levetiracetam 500 PHA 09/03/24 Complete Mg/5 Ml Sd V (Keppra 5 06:30 Levetiracetam 500 PHA 09/03/24 Complete Mg/5 Ml Sd V (Keppra 5 06:30 Comprehensive LAB 09/03/24 Complete Metabolic Panel 07:03 Cbc With Differential LAB 09/03/24 Complete 07:03 Urinalysis Profile LAB 09/03/24 Complete 07:03 Culture Urine LANDON 09/03/24 Logged 08:46 0.9%Nacl 1000ml (Ns PHA 09/03/24 Complete 1000ml) 09:30 Covid Rna Naat LAB 09/03/24 Complete 09:16 Current Medications Medications (Trade) Dose Ordered Sig/Donell Route PRN Reason Start Time Stop Time Status Last Admin Dose Admin Levetiracetam (kepPRA 500 MG/5 ML SD VIAL) 1,000 mg ONCE IV 09/03/24 06:30 09/03/24 06:30 DC Levetiracetam 1000 mg/Sodium Chloride 100 ml @ 400 mls/hr ONCE ONCE IV 09/03/24 06:30 09/03/24 06:44 DC 09/03/24 07:53 Sodium Chloride 1,000 ml @ 0 mls/hr ONCE ONCE IV 09/03/24 09:30 09/03/24 09:31 DC 09/03/24 09:20 Vital Signs Date Time Temp Pulse Resp B/P (MAP) Pulse Ox O2 Delivery O2 Flow Rate FiO2 09/03/24 09:18 99.0 109 16 109/ Room Air* 0 21 09/03/24 05:44 99.5 92 18 121/61 97 Room Air 0 DX & DISP Disposition: Discharge Departure Impression: Primary Impression: History of seizures Additional Impressions: Seizure-like activity, Dehydration, Chronic renal failure Condition: Stable Scripts Levetiracetam (Keppra) 500 Mg Tablet 1 TAB PO BID for 7 Days, #14 TAB 0 Refills Prov: ANGELICA HENAO MD 09/03/24 Additional Instructions: FOLLOW-UP WITH PRIMARY CARE PROVIDER IN 1 TO 2 DAYS. TAKE MEDICATIONS DIRECTED HERE IN THE EMERGENCY ROOM. OKAY TO CONTINUE HOME MEDICATIONS UNLESS OTHERWISE DISCUSSED DURING YOUR VISIT IN THE EMERGENCY ROOM TODAY. RETURN TO YOUR NEAREST EMERGENCY ROOM IF SYMPTOMS WORSEN OR IF THERE IS NO IMPROVEMENT. CALL 911 IF YOU NEED IMMEDIATE ASSISTANCE. TAKE TYLENOL [id number] NEEDED AND IF NO CONTRAINDICATIONS ARE PRESENT. INCREASE ORAL HYDRATION. A WOUND CULTURE OR URINE CULTURE WAS ORDERED HERE IN THE EMERGENCY ROOM DEPARTMENT PLEASE FOLLOW-UP WITH PRIMARY CARE PROVIDER AND ADVISE THEM TO GET REPORTS FROM OUR FACILITY. IF YOU HAD ANY SERENITY WRAP/SPLINTS THAT WERE APPLIED HERE, PLEASE DO NOT REMOVE THEM UNTIL YOU SEE YOUR PRIMARY CARE OR SPECIALTY. Referrals: Referrals: GYPSY BEAVERS MD (PCP) KATELYN GARCIA MD Time of Disposition: 10:01 CAROLYN MANTILLA MD Sep 03, 2024 06:23 ANGELICA HENAO MD Sep 03, 2024 10:02
[2024-09-03 07:27] LABS: IMMATURE GRANULOCYTE ABSOLUTE 0.03 K/uL (0-1); NUCLEATED RED BLOOD CELLS 0.0 % (0.0-0.19); PLATELET COUNT (AUTO) 148 K/uL (130-400); RED BLOOD CELL COUNT(AUTO) 3.92 MIL/uL (4.00-5.50); RED CELL DISTRIBUTION WIDTH 13.7 % (11.0-15.5); WHITE BLOOD COUNT (AUTO) 8.8 K/uL (4.8-10.8)
[2024-09-03 07:45] LABS: CREATININE 1.4 mg/dL (0.5-1.0); GLOMERULAR FILTR. RATE CALC 42.0 mL/min (>90); GLUCOSE,RANDOM 196.0 mg/dL (70-105); SODIUM SERUM 136.0 mmol/L (136-145); UREA NITROGEN, BLOOD 19.0 mg/dL (7-18)
[2024-09-03 07:50] LABS: ASPARTATE AMINOTRANSFERASE 30.0 U/L (10-37); TOTAL PROTEIN, SERUM 6.6 g/dL (6.0-8.3)
[2024-09-03] MEDS: leveTIRACEtam 500 MG/5 ML SD V 1,000 MG in 0.9%NACL 100ML 100 ML IV ONE (07:53)
[2024-09-03 08:27] LABS: APPEARANCE,URINE CLEAR (CLEAR); GLUCOSE, URINE (UA) 300 mg/dL (NEGATIVE); LEUKOCYTE ESTERASE ,URINE NEGATIVE Leu/uL (NEGATIVE); NITRATE,URINE NEGATIVE (NEGATIVE); OCCULT BLOOD,URINE SMALL (NEGATIVE)
[2024-09-03 08:35] LABS: ADD UA MICROSCOPIC YES
[2024-09-03 08:44] LABS: SQUAMOUS EPITHELIAL CELL,UR RARE /HPF (0-2)
[2024-09-03 09:18] VITALS: BP_SYST 109; PULSE 109; RESP 16; TEMP 98.9
[2024-09-03] MEDS: 0.9%NACL 1000ML 1,000 ML IV ONE (09:20)
[2024-09-03 09:57] LABS: SARS-CoV-2, RNA, NAAT NEGATIVE SARS CoV-2 (NEGATIVE)
[2024-09-03] MEDS ORDERED: LEVE-43 PO (10:02)
--- NOTE | 2024-09-03 10:30 | NUR ---
PENDING RIDE FROM AUNT, CALLED DAUGHTER DJ WILL CALL TO HAVE PT PICKED UP.
--- NOTE | 2024-09-03 10:59 | NUR ---
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 PT IS AAOX4 STABLE VITALS WNL NO C/O PAIN, MEDICALLY CLEARED TO GO HOME BY . PT HAS HER PERSONAL BELONGINGS. PT STATES SHE HAS HER MOTHER AND BROTHER AT HOME TO RECIEVE HER ON ARRIVAL TO HOUSE.
== END 2024-09-03 11:07 | disposition home or self-care (01) ==
LOC: EDH 05:38
DX: R56.9 Unspecified convulsions (principal); E86.0 Dehydration; E11.22 Type 2 diabetes mellitus with diabetic chronic kidney disease; N18.9 Chronic kidney disease, unspecified; Z79.899 Other long term (current) drug therapy; Z88.5 Allergy status to narcotic agent; Z90.49 Acquired absence of other specified parts of digestive tract; Z96.641 Presence of right artificial hip joint; Z20.822 Contact with and (suspected) exposure to COVID-19
CPT/HCPCS: 99284; 96365; 87635; 96366; 80053; 85025; 87086; 81001; 36415; J1953

== ENCOUNTER 2024-10-28 12:19 | Emergency (ER) | payer SELFPAY ==
[~2024-10-28] VITALS: Ht 160 cm; Wt 70.3 kg
[~2024-10-28 12:19] MED LIST changes: +LEVE-43 PO
--- NOTE | 2024-10-28 12:26 | ERN ---
ED Note History of Present Illness Stated Complaint: GBW Chief Complaint: Weakness Time Seen by MD: 12:20 Dictation: PATIENT IS A 64-YEAR-OLD FEMALE WHO IS A VERY POOR HISTORIAN COMING IN VIA EMS. PER EMS AND HER , SHE HAS BEEN LETHARGIC AND GENERALIZED BODY WEAKNESS ONSET 10:00 THIS MORNING. NO NAUSEA VOMITING NO DIARRHEA. WHEN I SPOKE TO THE , HE STATES IT PATIENT HAS BEEN THIS WAY ACTUALLY FOR THE LAST COUPLE OF DAYS. HE DOES NOT KNOW WHAT MEDICATIONS SHE IS ON BUT HE DOES STATE SHE HAS A DIABETIC. PATIENT HAS BEEN MUCOUS MEMBRANES ARE NOTED TO BE VERY DRY EMS STATES HER BLOOD SUGAR IS GREATER THAN [address]TE. GCS 13 Patient's Marek is at bedside and is unable to provide a last known well time. Allergies: Coded Allergies: codeine (Unverified Allergy, Intermediate, RASH, 01/20/14) Home Meds Active Scripts Levetiracetam (Keppra) 500 Mg Tablet, 1 TAB PO BID for 7 Days, #14 TAB 0 Refills Prov:ANGELICA HENAO MD 09/03/24 Meclizine HCl (Meclizine HCl) 25 Mg Tablet, 25 MG PO TID PRN for DIZZINESS, #30 TAB 0 Refills Prov:NATO SARAVIA MD 10/13/23 Atorvastatin Calcium (LIPITOR) 40 Mg Tablet, 40 MG PO HS, #60 TAB Prov:JAKE RILEY MANAGER MARKETING SALES 09/21/23 Reported Medications Duloxetine HCl (Cymbalta) 60 Mg Capsule.dr, 60 MG PO DAILY, CAP 10/22/23 Folic Acid/Vitamin B Comp W-C (Keara-Omi Tablet) 0.8 Mg Tablet, 0.8 MG PO DAILY, TAB 10/22/23 Gabapentin (Gabapentin) 600 Mg Tablet, 600 MG PO TID, TAB 01/10/15 Past Medical History Past Medical History: Diabetes-Type II, Seizure Additional Past Medical Hx: PT NOT A GOOD HISTORIAN Surgical History: Cholecystectomy Surgical History Other: R HIP REPLACEMENT, L LEG REPAIR, CATARACT SURGERY History: Not Applicable RN Note Reviewed/Agreed w/PFSH: Yes Review of System Dictation CONSTITUTIONAL: NEGATIVE EXCEPT FOR HPI GENERALIZED BODY WEAKNESS HEAD/FACE: NEGATIVE EXCEPT FOR HPI EENT: NEGATIVE EXCEPT FOR HPI RESPIRATORY: NEGATIVE EXCEPT FOR HPI GASTROINTESTINAL/ABDOMINAL: NEGATIVE EXCEPT FOR HPI GENITOURINARY: NEGATIVE EXCEPT FOR HPI MUSCULOSKELETAL: NEGATIVE EXCEPT FOR HPI INTEGUMENTARY: NEGATIVE EXCEPT FOR HPI NEUROLOGICAL/PSYCH: NEGATIVE EXCEPT FOR HPI ALTERED MENTAL STATUS HEMATOLOGIC/LYMPHATIC: NEGATIVE EXCEPT FOR HPI ALL SYSTEMS NEGATIVE, EXCEPT NOTED ABOVE. 13 POINT REVIEW OF SYSTEMS ASSESSED AND ALL NEGATIVE EXCEPT FOR ABOVE. Initial Vital Sign VS Vital Signs Date Time Temp Pulse Resp B/P (MAP) Pulse Ox O2 Delivery O2 Flow Rate FiO2 10/28/24 12:20 99.9 102 18 152/97 99 Nasal Cannula 2.0 10/28/24 14:09 21 Physical Exam Dictation VITAL SIGNS REVIEWED GENERAL APPEARANCE: LETHARGIC, AROUSES WE WILL OPEN HER EYES. MUMBLES AND AUNT ATTEMPTS TO ANSWER SIMPLE QUESTIONS. HEAD AND FACE: NON-TRAUMATIC. EYES: PERRL, PINK CONJUNCTIVAS, EYELID NO TRAUMA, ANTERIOR CHAMBER WITH ARCUS SENILIS. EARS: PINNAS INTACT AND NO SIGNS OF TRAUMA OR ERYTHEMA EAR CANALS CLEAR AND NO DISCHARGE TM NO ERYTHEMA NOSE: NO DISCHARGE, NO BLEEDING. OROPHARYNX:, MUCOUS MEMBRANES DRY PHARYNX CLEAR,NO ERYTHEMA, TONSILS NO EXUDATES, NO ABSCESSES NOTED, MUCOUS MEMBRANE MOIST NECK: SUPPLE, NON-TENDER, NO THYROMEGALY, NO MASSES, NO JVD, NO BRUITS BREAST:DEFERRED CHEST:NO TENDERNESS, NO CREPITUS, NO PARADOXICAL MOVEMENT, NO RETRACTIONS LUNGS:CLEAR, WELL-VENTILATED, SYMMETRIC, NO RALES, NO WHEEZING, NO RHONCHI, NO STRIDOR, GOOD BREATH SOUNDS BILATERALLY HEART: REGULAR RATE, REGULAR RHYTHM, NO MURMUR, NO GALLOPS VASCULAR: NO PERIPHERAL EDEMA, ABDOMEN: SOFT, POSITIVE BOWEL SOUNDS, NONDISTENDED, NO GUARDING, NONTENDER, NO REBOUND, NO MASSES NO HEPATOMEGALY, NO SPLENOMEGALY, NO MARTINS'S SIGN, NO HERNIAS. RECTAL: DEFERRED GENITAL: DEFERRED NEUROLOGICAL: NORMAL SPEECH, MOTOR FUNCTION INTACT, SENSORY FUNCTION INTACT MUSCULOSKELETAL: NECK NONTENDER, FULL RANGE OF MOTION, BACK NONTENDER, FULL RANGE OF MOTION, EXTREMITIES: NONTENDER, FULL RANGE OF MOTION SKIN: COLOR DIFFUSE DISCRETE MACULAR RASH NOTED. APPEARS LIKE SCABIES INFESTATION LYMPHATIC: DEFERRED Results (Laboratory/Radiology) Laboratory/Radiology Laboratory Tests Test 10/28/24 12:39 10/28/24 13:24 10/28/24 14:42 White Blood Count 6.1 K/uL (4.8-10.8) Red Blood Count 3.42 MIL/uL (4.00-5.50) L Hemoglobin 10.5 g/dL (12.0-16.0) L Hematocrit 32.0 % (36-48) L Mean Corpuscular Volume 93.6 fL (79-99) Mean Corpuscular Hemoglobin 30.7 pg (27.0-33.0) Mean Corpuscular Hemoglobin Concent 32.8 g/dL (32.0-36.0) Red Cell Distribution Width 15.9 % (11.0-15.5) H Platelet Count 181 K/uL (130-400) Mean Platelet Volume 12.5 fL (7.5-10.5) H Immature Granulocyte % (Auto) 0.3 % (0-1) Neutrophils (%) (Auto) 85.1 % (40.0-77.0) H Lymphocytes (%) (Auto) 9.0 % (21.0-51.0) L Monocytes (%) (Auto) 4.1 % (3.0-13.0) Eosinophils (%) (Auto) 0.7 % (0.0-8.0) Basophils (%) (Auto) 0.8 % (0.0-5.0) Neutrophils # (Auto) 5.2 K/uL (1.8-7.7) Lymphocytes # (Auto) 0.6 K/uL (1.0-4.8) L Monocytes # (Auto) 0.3 K/uL (0.1-1.0) Eosinophils # (Auto) 0.04 K/uL (0.00-0.70) Basophils # (Auto) 0.05 K/uL (0.00-0.20) Absolute Immature Granulocyte (auto 0.02 K/uL (0-1) Nucleated Red Blood Cells 0.0 % (0.0-0.19) White Cell Morphology Comment See comments Sodium Level 134 mmol/L (136-145) L Potassium Level 3.8 mmol/L (3.5-5.1) Chloride Level 101 mmol/L (101-111) Carbon Dioxide Level 26 mmol/L (21-32) Blood Urea Nitrogen 18 mg/dL (7-18) Creatinine 1.1 mg/dL (0.5-1.0) H Glomerular Filtration Rate Calc 56 mL/min (>90) Random Glucose 380 mg/dL (70-105) H Whole Blood Ketones Quantitative 0.4 mmol/L (0.0-0.6) Lactic Acid Level 1.3 mmol/L (0.8-2.5) Total Calcium 8.4 mg/dL (8.5-10.1) L Troponin I High Sensitivity 1359 ng/L (4-50) *H 1789 ng/L (4-50) *H Urine Color YELLOW (YELLOW) Urine Appearance CLOUDY (CLEAR) H Urine pH 6.0 (5.0-8.0) Urine Specific Wilmer 1.020 (1.001-1.031) Urine Protein >=300 mg/dL (NEGATIVE) H Urine Glucose (UA) >=1000 mg/dL (NEGATIVE) H Urine Ketones 5 mg/dL (NEGATIVE) H Urine Occult Blood MODERATE (NEGATIVE) H Urine Nitrate NEGATIVE (NEGATIVE) Urine Bilirubin NEGATIVE mg/dL (NEGATIVE) Urine Urobilinogen 0.2 mg/dL (0.2-1.0) Urine Leukocyte Esterase SMALL Jenniffer/uL (NEGATIVE) H Urine RBC 11-25 /HPF (0-1) H Urine WBC 11-25 /HPF (0-1) H Urine Squamous Epithelial Cells 0-2 /HPF (0-2) Urine Bacteria Many /HPF (None Seen) H Urine Opiates Screen NEGATIVE (NEGATIVE) Urine Barbiturates Screen NEGATIVE (NEGATIVE) Urine Phencyclidine Screen NEGATIVE (NEGATIVE) Urine Amphetamines Screen NEGATIVE (NEGATIVE) Urine Benzodiazepines Screen NEGATIVE (NEGATIVE) Urine Cocaine Screen NEGATIVE (NEGATIVE) Urine Marijuana (THC) Screen NEGATIVE (NEGATIVE) Prothrombin Time 11.8 SEC (9.6-11.6) H Prothromb Time International Ratio 1.13 (0.85-1.15) Activated Partial Thromboplast Time 25.5 SEC (26.3-35.5) L Ammonia < 10 umol/L (11-32) L EXAM: CR Chest, 1 View. CLINICAL HISTORY: SOB/COUGH COMPARISON: Radiograph dated October 22, 2023. FINDINGS: There is bilateral perihilar and bibasilar airspace disease that may reflect pulmonary edema. Small left effusion. No pneumothorax. There is mild to moderate cardiomegaly and pulmonary vascular congestion. IMPRESSION: 1. Bilateral perihilar and bibasilar airspace disease, possibly representing pulmonary edema, with small left pleural effusion. 2. Mild to moderate cardiomegaly with pulmonary vascular congestion. /[place] CLINICAL INFORMATION Altered mental status COMPARISON None. TECHNIQUE Volumetric helical CT images of the head without contrast FINDINGS Midline shift: None. Intracranial Hemorrhage: None. Extra axial spaces: Normal. Ventricular system: Mild lateral and third ventriculomegaly. Incidental note of cavum septum pellucidum et vergae. Basal cisterns: Normal. Cerebral parenchyma: Scattered regions of hypoattenuation within the cerebral deep and periventricular white matter compatible with chronic small vessel disease. Cerebellum: Normal. Brainstem: Normal. Skull: Normal. Vascular system: Normal. Paranasal sinuses: Normal. Mastoid air cells: Normal. Visualized Orbits: Normal. Visualized upper cervical spine: Normal. Skull base: Normal. Soft Tissues: Normal. IMPRESSION No acute intracranial abnormality. Mild lateral and third ventriculomegaly, which may be related to central atrophy. Mild chronic small vessel disease. /[place] Labs Reviewed?: Yes EKG Comment: 1224/EKG sinus rhythm/heart rate 97/left atrial enlargement/ST-elevation V1 V2 V3. Chronic changes to leads two and three. EKG reviewed by Dr. Aguilar and compared to EKG from 10/09/2023. Prior EKG demonstrates inferior ST segment elevation otherwise very similar to today. 1443/REPEAT EKG SINUS RHYTHM/HEART RATE 91/AXIS NORMAL/ST CHANGES IN V1 V2 V3 CHRONIC CHANGES LEADS TWO AND THREE.NO ACUTE CHANGES 1550/REPEAT HIGH SENSITIVITY TROPONIN 1789 HEART SCORE IS SIX WE WILL INITIATE HEPARIN. ED Course ED Course Orders Procedure Category Date Status Time Ketone Blood LAB 10/28/24 Complete Quantitative 12:21 Blood Cult LANDON 10/28/24 In Process 12:21 Lactic Acid LAB 10/28/24 Complete 12:21 Nurse Driven Rene SUTTON 10/28/24 In Process Removal Pro 12:21 Cbc With Differential LAB 10/28/24 Complete 12:21 Troponin I High LAB 10/28/24 Complete Sensitivity 12:21 Urinalysis Profile LAB 10/28/24 Complete 12:21 12 Lead Ekg Tracing- EKG 10/28/24 Complete Technical 12:21 0.9%Nacl 1000ml (Ns PHA 10/28/24 Complete 1000ml) 12:30 Chest 1vw RAD 10/28/24 Resulted 12:21 Basic Metabolic Panel LAB 10/28/24 Complete 12:21 Ct Head/Brain W/O CT 10/28/24 Resulted Contrast 12:23 Initiate Heparin HERMAN 10/28/24 In Process Treatment Pro 13:17 Heparin 5,000 Unit PHA 10/28/24 In Process Vial (Heparin 5,000 U 14:30 Heparin 25,000 PHA 10/28/24 In Process Units/250ml D5w 14:30 Heparin Protocol CPOE 10/28/24 Transmitted Monitoring 13:17 Nitroglycerin 1gm PHA 10/28/24 Complete Oint (Nitroglycerin 1g 13:30 Culture Urine LANDON 10/28/24 In Process 14:00 Ceftriaxone 2gm Vial PHA 10/28/24 Complete (Rocephin 2gm Inj) 14:30 Ammonia LAB 10/28/24 Complete 14:18 Drug Screen Urine LAB 10/28/24 Complete 14:18 Pt And Ptt LAB 10/28/24 Complete 14:23 Troponin I High LAB 10/28/24 Complete Sensitivity 14:23 12 Lead Ekg Tracing- EKG 10/28/24 Complete Technical 14:39 Current Medications Medications (Trade) Dose Ordered Sig/Donell Route PRN Reason Start Time Stop Time Status Last Admin Dose Admin Ceftriaxone Sodium (Rocephin 2gm Inj) 2 gm ONCE ONCE IVPB 10/28/24 14:30 10/28/24 14:31 DC 10/28/24 16:13 Heparin Sodium (Porcine) (HEParin 5,000 UNIT VIAL) *calculation based on ACTUAL B... AD PRN IV HEPARIN PROTOCOL 10/28/24 14:30 11/27/24 14:29 10/28/24 16:18 Heparin Sodium/ Dextrose 250 ml @ 0 mls/hr Q6H IV 10/28/24 14:30 11/27/24 14:29 10/28/24 16:27 Nitroglycerin (Nitroglycerin 1gm Oint) 1 inch ONCE ONCE TD 10/28/24 13:30 10/28/24 13:31 DC 10/28/24 14:02 Sodium Chloride 1,000 ml @ 0 mls/hr ONCE ONCE IV 10/28/24 12:30 10/28/24 12:31 DC 10/28/24 13:38 Vital Signs Date Time Temp Pulse Resp B/P (MAP) Pulse Ox O2 Delivery O2 Flow Rate FiO2 10/28/24 16:00 98.1 88 17 138/91 99 Nasal Cannula* 2 28 10/28/24 15:00 98.1 92 18 143/86 98 Nasal Cannula* 2 28 10/28/24 14:09 98.1 94 16 139/88 100 Room Air* 0 21 10/28/24 12:20 99.9 102 18 152/97 99 Nasal Cannula 2.0 1318/TROPONIN 1359. WE WILL INITIATE HEPARIN DRIP AND ANTICIPATE PATIENT BEING ADMITTED TO THE HOSPITAL FOR NON STEMI TN 1420/ 1420/PATIENT REMAINS LETHARGIC BUT AROUSES MORE READILY. SHE ATTEMPTS TO ANSWER SIMPLE QUESTIONS HOWEVER HAS DIFFICULTY MAKING WORDS. WE WILL FOLLOW UP WITH SOC, PROBABLE TRANSFER TO A HIGHER LEVEL OF CARE FOR NEUROLOGIC EVALUATION.EARLENE AGREES. NO FAMILY AT [id number]/ 1432/DR. ALVAREZ/T NEUROLOGY EXAMINED PATIENT. PATIENT DEMONSTRATES A RIGHT FACIAL DROOP WITH WEAKNESS TO THE RIGHT UPPER EXTREMITY MOVES ALL OTHER EXTREMITIES 4+5. RECOMMENDS WE CONTINUE STROKE WORKUP. PATIENT WAS AMPLE ANSWER SIMPLE QUESTIONS MILD APHASIA NOTED. NIH IS SIX 1550/SPOKE WITH PATIENT'S DAUGHTER, MILES AND SHE STATES THE ONLY THING SHE COULD A DD TO THIS VISIT TO THE EMERGENCY ROOM TODAY IS MORE MOTHER HAS HAD SOME CARDIAC HISTORY IN THE PAST AND HAS A DIABETIC OTHERWISE SHE SAID SHE DOES NOT LIVE WITH HER MOTHER AND HAS NOT SEEN HER IN QUITE A WHILE. SHE HAS NO ADDITIONAL INFORMATION ON THE CURRENT VISIT OR HER MOTHER STATUS. SPOKE WITH , WE WILL INITIATE HEPARIN EKGS REMAINING STABLE HOWEVER TROPONIN IS RISING. SPOKE WITH MS. SHRESTHA, PROOFER APPRENTICE FOR TRANSFER TO A HIGHER LEVEL OF CARE FOR NON STEMI TN AND RULE OUT STROKE. 1638/SPOKE WITH SPEEDY AT THE [facility] AND REVIEWED CT LABS EKG AND NEURO TELE VISIT. HE IS AWARE THE PATIENT IS ALREADY ON A HEPARIN DRIP HAS BEEN GIVEN ASPIRIN AND NITRO PASTE TO HER CHEST FOR NON STEMI TN. WE REVIEWED EKGS TO INCLUDE THE ONE FROM 10/09/2023 AND HE AGREED TO ACCEPT THE PATIENT IN TRANSFER TO NEURO ICU. 1645/SPOKE WITH DR. COOK [facility] AND SPEEDY AT THE TRANSFER CENTER. WE REVIEWED CT LABS INTERVENTIONS FOR NON STEMI TN AND CT. SHE AGREED TO ACCEPT PATIENT TO NEURO ICU. NIH score is a 10 now. Eyes are now open more and patient more alert. She complains of a left hemianopsia. Right arm is flaccid, dysarthria HEART Score Response (Comments) Value EKG: Repolarization changes 1 Age: 45-65yrs (+1) 1 Risk Factors: 3+ risk factors (+2) 2 Initial Troponin: Normal limit (0) 0 Total 4 Medical Decision Making MDM MDM: DIFFERENTIAL DIAGNOSIS: ACS/AMI/ELECTROLYTE IMBALANCE/DEHYDRATION/POLYDRUG AB USE/DKA/CVA/CORONARY SYNDROME/UTI/ENCEPHALOPATHY RATIONALE: TESTS CONSIDERED AND ORDERED SECONDARY TO SHARED DECISION MAKING INC LUDE: LABS, ECG AND RADIOLOGY PREVIOUS OUTSIDE RECORDS REVIEWED: OLD ER VISITS. RISK OF COMPLICATION AND/OR MORBIDITY OR MORTALITY OF PATIENT MANAGEMENT: NONE MEDICATIONS-PER MEDICATION RECONCILIATION NEED FOR HOSPITALIZATION: PATIENT DOES MEET CRITERIA FOR HOSPITALIZATION. PATIENT WILL NEED TO BE TRANSFERRED TO A HIGHER LEVEL OF CARE FOR NON STEMI TN AND RULE OUT CVA NO NEUROLOGY AVAILABLE TODAY AT [facility] NEED FOR EMERGENCY MAJOR/MINOR SURGERY: NO THERE ARE NO SOCIAL CONCERNS WITH THIS PATIENT. PRESCRIPTION DRUG MANAGEMENT PRESCRIPTIONS WILL INCLUDE SYMPTOMATIC CARE PATIENT'S PRIOR EXTERNAL MEDICAL RECORDS FROM OTHER ER VISITS WERE REVIEWED BY ME INDICATED. PRIOR TESTING AND RESULTS FROM PREVIOUS VISITS WERE REVIEWED. PRIOR TESTS WERE TAKEN INTO ACCOUNT WITH MEDICAL DECISION MAKING AND RESOURCE UTILIZATION, INDEPENDENT HISTORIAN/HISTORIANS WERE USED TO OBTAIN COMPLETE MEDICAL HISTORY. I INDEPENDENTLY INTERPRETED THE TEST THAT WERE PERFORMED, RESULTS WERE REVIEWED BY ME AND CONSIDERED FINDINGS ON RADIOLOGY IF ORDERED. MEDICAL MANAGEMENT AND EXAMINATION INTERPRETATION DISCUSSIONS WERE HAD BY ME WITH OTHER QUALIFIED HEALTHCARE PROFESSIONALS INDICATED FOR THE PATIENT'S CARE. DX & DISP Disposition: Transfer Departure Impression: Primary Impression: NSTEMI (non-ST elevated myocardial infarction) Additional Impressions: Bilateral pleural effusion, Hyponatremia, Uncontroll ed diabetes mellitus, Stage 3 chronic kidney disease, Anemia of chronic renal failure, stage 3a, Hypocalcemia, Encephalopathy acute, CVA (cerebral vascular accident) Condition: Stable Referrals: GYPSY BEVAERS MD (PCP) Time of Disposition: 15:55 I have reviewed the case, and I agree with, Diagnosis and Plan DAMION SONI NP Oct 28, 2024 12:26
--- NOTE | 2024-10-28 12:43 | EKG ---
[facility] Test Date: 2024-10-28 Test Time: 12:24:05 Pat Name: AZEEM CERRATO Department: [facility] Room: Gender: F Order Booker: 1378 : 1960 Requested By: DAMION SONI Order Number: [id number] Reading MD: Zelalem Aguilar Measurements Intervals [place] Rate: 97 P: 44 ID: [id number] QRS: 17 QRSD: 110 T: 130 QT: 360 QTc: 457 Interpretive Statements Sinus rhythm Probable left atrial enlargement Inferior infarct, old Anteroseptal infarct, acute (LAD) Compared to ECG 10/22/2023 14:38:27 Myocardial infarct finding now present Atrial premature complex(es) no longer present Early repolarization no longer present Possible ischemia no longer present Electronically Signed On 10-28-2024 21:58:32 CDT by Zelalem Aguilar Please click the below link to view image of tracing.
[2024-10-28 12:52] LABS: IMMATURE GRANULOCYTE ABSOLUTE 0.02 K/uL (0-1); NUCLEATED RED BLOOD CELLS 0.0 % (0.0-0.19); PLATELET COUNT (AUTO) 181 K/uL (130-400); RED BLOOD CELL COUNT(AUTO) 3.42 MIL/uL (4.00-5.50); RED CELL DISTRIBUTION WIDTH 15.9 % (11.0-15.5); WHITE BLOOD COUNT (AUTO) 6.1 K/uL (4.8-10.8)
[2024-10-28 13:08] LABS: CREATININE 1.1 mg/dL (0.5-1.0); GLOMERULAR FILTR. RATE CALC 56.0 mL/min (>90); GLUCOSE,RANDOM 380.0 mg/dL (70-105); SODIUM SERUM 134.0 mmol/L (136-145); UREA NITROGEN, BLOOD 18.0 mg/dL (7-18)
--- NOTE | 2024-10-28 13:14 | NUR ---
[address], patient tolerated well, 300cc output, patient resting in bed, at bedside
--- NOTE | 2024-10-28 13:30 | NUR ---
patient presented to ed with ams and stroke like symptoms, nih of a 10, patient and at bedside poor medical appliance maker thad zapata admissions clinician aware of patient status patient resting in bed, at bedside
--- NOTE | 2024-10-28 13:34 | HMCIMG ---
EXAM: CR Chest, 1 View. CLINICAL HISTORY: SOB/COUGH COMPARISON: Radiograph dated October 22, 2023. FINDINGS: There is bilateral perihilar and bibasilar airspace disease that may reflect pulmonary edema. Small left effusion. No pneumothorax. There is mild to moderate cardiomegaly and pulmonary vascular congestion. IMPRESSION: 1. Bilateral perihilar and bibasilar airspace disease, possibly representing pulmonary edema, with small left pleural effusion. 2. Mild to moderate cardiomegaly with pulmonary vascular congestion. /[place]
[2024-10-28 13:37] LABS: APPEARANCE,URINE CLOUDY (CLEAR); GLUCOSE, URINE (UA) >=1000 mg/dL (NEGATIVE); LEUKOCYTE ESTERASE ,URINE SMALL Leu/uL (NEGATIVE); NITRATE,URINE NEGATIVE (NEGATIVE); OCCULT BLOOD,URINE MODERATE (NEGATIVE)
[2024-10-28] MEDS: 0.9%NACL 1000ML 1,000 ML IV ONE (13:38)
[2024-10-28 13:43] LABS: ADD UA MICROSCOPIC YES
--- NOTE | 2024-10-28 13:53 | HMCIMG ---
CLINICAL INFORMATION Altered mental status COMPARISON None. TECHNIQUE Volumetric helical CT images of the head without contrast FINDINGS Midline shift: None. Intracranial Hemorrhage: None. Extra axial spaces: Normal. Ventricular system: Mild lateral and third ventriculomegaly. Incidental note of cavum septum pellucidum et vergae. Basal cisterns: Normal. Cerebral parenchyma: Scattered regions of hypoattenuation within the cerebral deep and periventricular white matter compatible with chronic small vessel disease. Cerebellum: Normal. Brainstem: Normal. Skull: Normal. Vascular system: Normal. Paranasal sinuses: Normal. Mastoid air cells: Normal. Visualized Orbits: Normal. Visualized upper cervical spine: Normal. Skull base: Normal. Soft Tissues: Normal. IMPRESSION No acute intracranial abnormality. Mild lateral and third ventriculomegaly, which may be related to central atrophy. Mild chronic small vessel disease. /[place]
[2024-10-28 14:00] LABS: SQUAMOUS EPITHELIAL CELL,UR 0-2 /HPF (0-2)
[2024-10-28] MEDS: NITROGLYCERIN 1GM OINT 1 INCH/1GM TD ONE (14:02)
--- NOTE | 2024-10-28 14:48 | EKG ---
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
[2024-10-28 15:00] LABS: INR 1.13 (0.85-1.15)
[2024-10-28 15:21] LABS: AMPHET/METH SCREEN,URINE NEGATIVE (NEGATIVE); BARBITURATE SCREEN, URINE NEGATIVE (NEGATIVE); CANNABINOID SCREEN,URINE NEGATIVE (NEGATIVE); COCAINE SCREEN,URINE NEGATIVE (NEGATIVE)
--- NOTE | 2024-10-28 15:50 | NUR ---
TRANSFER REQUEST TO [facility] FOR N STEMI R/O STROKE PER DR HENAO. HENRIETTA RN
--- NOTE | 2024-10-28 16:25 | NUR ---
TRANSFER CALL PLACE TO [facility] SPOKE WITH CRYSTAL INFORMATION PROVIDED AND WILL CALL BACK. MARY ARTEAGA
--- NOTE | 2024-10-28 18:25 | NUR ---
TRANSFER CALL BACK WITH ACCEPTANCE UNDER DOCTOR ANNEMARIE TO NEURO ICU ROOM [id number] AND PRIMARY NURSE TO CALL EMS WHEN READY. HENRIETTA ARTEAGA
--- NOTE | 2024-10-28 18:58 | NUR ---
attempted to call [facility] for report to transfer patient out, no response patient resting in bed, ar bedside
--- NOTE | 2024-10-28 19:17 | NUR ---
spoke to leroy melissa rn from [facility] for report, also spoke to carlee from [facility] for transfer patient resting in bed, at bedside
--- NOTE | 2024-10-28 19:19 | NUR ---
Oksana oneal in [facility] - 10/28/24 at 1923 by RAMONA PT CARE ASSUMED AT THIS TIME
--- NOTE | 2024-10-28 19:29 | NUR ---
PT CARE ASSUMED AT THIS TIME
[2024-10-28 21:46] VITALS: BP 127/72; PULSE 79; RESP 22; TEMP 98.4; O2SAT 98
--- NOTE | 2024-10-28 21:50 | NUR ---
EMS ARRIVED FOR PT. REPORT GIVEN TO EMS AT THIS TIME.
--- NOTE | 2024-10-28 21:57 | NUR ---
EMS LEFT [facility] WITH PT FOR TRANSPORT. PENDING ARRIVAL TO [facility] NEURO ICU RM [id number]. PT SHOWS NO SIGNS OF DISTRESS AT THIS TIME. EVEN RISE AND FALL OF CHEST NOTED.
== END 2024-10-28 21:57 | disposition short-term general hospital (02) ==
LOC: EDH 12:19
DX: I21.4 Non-ST elevation (NSTEMI) myocardial infarction (principal); J90 Pleural effusion, not elsewhere classified; E87.1 Hypo-osmolality and hyponatremia; D63.1 Anemia in chronic kidney disease; E11.65 Type 2 diabetes mellitus with hyperglycemia; E83.51 Hypocalcemia; G93.40 Encephalopathy, unspecified; E11.22 Type 2 diabetes mellitus with diabetic chronic kidney disease; N18.31 Chronic kidney disease, stage 3a; Z79.899 Other long term (current) drug therapy; Z88.5 Allergy status to narcotic agent; Z90.49 Acquired absence of other specified parts of digestive tract; Z96.641 Presence of right artificial hip joint; Z98.49 Cataract extraction status, unspecified eye
CPT/HCPCS: 99285; 96365; 96361; 70450; 71045; 84484 ×2; 80048; 80305; 82140; 85025; 85610; 85730; 87040 ×2; 87086; 83605; 82010; 36415; 96368; 96376; 93005 ×2; 81001; J0696; J1644 ×2